=== PATIENT | male | born 1995 | race Two or more races ===

== ENCOUNTER 2017-10-30 11:30 | Emergency (ER) | payer SELFPAY ==
[2017-10-30] MEDS ORDERED: NS 0.9% 1000 ML* 1,000 ML IV ONE (12:10)
[2017-10-30] MEDS ORDERED: Metoclopramide IV* 5 MG/ML 2 ML VIAL IV ONE (12:10)
[2017-10-30] MEDS ORDERED: Ketorolac INJ* 30 MG/ML 1 ML VIAL IV ONE (12:10)
[2017-10-30] MEDS ORDERED: diPHENhydraMINE IV* 50 MG/ML 1 ml VIAL (BENADRYL) IV ONE (12:10)
[2017-10-30 12:38] LABS: Hematocrit 40 % (42-52); Hemoglobin 13.8 g/dl (14.0-18.0); Mean Corpuscular HGB Conc 35 g/dl (31-36); Mean Corpuscular Hemoglobin 30 pg (27-31); Mean Corpuscular Volume 87 fL (80-94); Mean Platelet Volume 7 um3 (7.4-10.4); Red Blood Count 4.61 10^6/ul (4.0-5.4); Red Cell Distribution Width 13 % (10.5-15); White Blood Count 11.1 10^3/ul (3.5-10.8)
[2017-10-30 12:54] LABS: ALT 33 U/L (7-52); AST 29 U/L (13-39); Albumin 4.7 g/dL (3.2-5.2); Alkaline Phosphatase 61 U/L (34-104); Anion Gap 11 mmol/L (2-11); BUN/Creatinine Ratio 15.9 (8-20); Blood Urea Nitrogen 11 mg/dL (6-24); C Reactive Protein < 1.00 mg/L (< 5.00); CO2 Carbon Dioxide 23 mmol/L (22-32); Calcium 9.8 mg/dL (8.6-10.3); Chloride 101 mmol/L (101-111); EGFR African American 181.2 (>60); EGFR Non-African American 140.9 (>60); Glucose 118 mg/dL (70-100); Potassium 3.9 mmol/L (3.5-5.0); Sodium 135 mmol/L (133-145); Total Protein 7.7 g/dL (6.4-8.9)
[2017-10-30 14:37] VITALS: BP 127/49
--- NOTE | 2017-10-30 18:21 | ED ---
Shane Santacruz Angela, scribed for Jethro Fu MD on 10/30/17 at 1210 . Headache - HPI Summary HPI Summary: This pt is a 22 y/o male [facility] x3 days. Pt reports he has felt worse today with feeling of passing out. He currently rates his pain 7/10 in severity. He additionally c/o nausea, diarrhea (today), photophobia , phonophobia. Pt states he has not had normal PO intake secondary to nausea. He denies vomiting, fever, sore throat, rhinorrhea, neck pain. Pt notes he has never had these headaches before. He didn't come in sooner as he thought his headache would resolve on its own. He denies any PMHx. No tobacco or drug use. He states drinking alcohol occasionally, last time was yesterday (he had 4 beers). - History Of Current Complaint Chief Complaint: EDWeakness Stated Complaint: HEADACHE/DIARRHEA/ABD PAIN Time Seen by Provider: 10/30/17 11:44 Hx Obtained From: Patient Onset/Duration: Started days ago, Still Present Currently Pain Is: Current Pain Scale(0-10)= - 7/10 Timing: Constant, Days Aggravating Factor: Bright Lights Associated Signs And Symptoms: Nausea, Other (Noted In Comments) - POS: photophobia, phonophobia, diarrhea. NEG: vomiting, fever, sore throat, rhinorrhea, neck pain - Allergies/Home Medications Allergies/Adverse Reactions: Allergies Allergy/AdvReac Type Severity Reaction Status Date / Time No Known Allergies Allergy Verified 10/30/17 11:39 PMH/Surg Hx/FS Hx/Imm Hx Endocrine/Hematology History: Denies: Hx Diabetes Cardiovascular History: Denies: Hx Hypertension Infectious Disease History: No Infectious Disease History: Denies: Traveled Outside the [place] in Last 30 Days - Family History Known Family History: Negative: Cardiac Disease, Hypertension, Diabetes - Social History Alcohol Use: Occasionally Substance Use Type: Reports: None Smoking Status (MU): Never Smoked Tobacco Review of Systems Negative: Fever, Chills Positive: Photophobia. Negative: Blurred Vision ENT: Other - phonophobia Negative: Sore Throat, Nasal Discharge Positive: Diarrhea, Nausea. Negative: Vomiting Negative: Other - neck pain Neurological: Other - feeling like passing out Positive: Headache All Other Systems Reviewed And Are Negative: Yes Physical Exam - Summary Physical Exam Summary: VITAL SIGNS: Reviewed. GENERAL: Patient is a well-developed and nourished male who is lying comfortable in the stretcher. Patient is not in any acute respiratory distress. HEAD AND FACE: No signs of trauma. No ecchymosis, hematomas or skull depressions. No sinus tenderness. EYES: PERRLA, EOMI x 2, No injected conjunctiva, no nystagmus. EARS: Hearing grossly intact. Ear canals and tympanic membranes are within normal limits. MOUTH: Oropharynx within normal limits. NECK: Supple, trachea is midline, no adenopathy, no JVD, no carotid bruit, no c- spine tenderness, neck with full ROM. CHEST: Symmetric, no tenderness at palpation LUNGS: Clear to auscultation bilaterally. No wheezing or crackles. CVS: Regular rate and rhythm, S1 and S2 present, no murmurs or gallops appreciated. ABDOMEN: Soft, non-tender. No signs of distention. No rebound no guarding, and no masses palpated. Bowel sounds are normal. EXTREMITIES: FROM in all major joints, no edema, no cyanosis or clubbing. NEURO: Alert and oriented x 3. No acute neurological deficits. Speech is normal and follows commands. SKIN: Dry and warm Triage Information Reviewed: Yes Vital Signs On Initial Exam: Initial Vitals Temp Pulse Resp BP Pulse Ox 98.6 F 106 16 147/76 100 10/30/17 11:34 10/30/17 11:34 10/30/17 11:34 10/30/17 11:34 10/30/17 11:34 Vital Signs Reviewed: Yes - Malika Coma Scale Coma Scale Total: 15 Diagnostics - Vital Signs Vital Signs Temp Pulse Resp BP Pulse Ox 10/30/17 11:48 110 19 99 10/30/17 11:45 154/71 10/30/17 11:34 98.6 F 106 16 147/76 100 - Laboratory Lab Results: Lab Results 10/30/17 10/30/17 Range/Units 12:27 12:27 WBC 11.1 H (3.5-10.8) 10^3/ul RBC 4.61 (4.0-5.4) 10^6/ul Hgb 13.8 L (14.0-18.0) g/dl Hct 40 L (42-52) % MCV 87 (80-94) fL MCH 30 (27-31) pg MCHC 35 (31-36) g/dl RDW 13 (10.5-15) % Plt Count 268 (150-450) 10^3/ul MPV 7 L (7.4-10.4) um3 Neut % (Auto) 89.9 H (38-83) % Lymph % (Auto) 6.9 L (25-47) % [place] % (Auto) 2.9 (1-9) % Eos % (Auto) 0.1 (0-6) % Baso % (Auto) 0.2 (0-2) % Absolute Neuts (auto) 10.0 H (1.5-7.7) 10^3/ul Absolute Lymphs (auto) 0.8 L (1.0-4.8) 10^3/ul Absolute Monos (auto) 0.3 (0-0.8) 10^3/ul Absolute Eos (auto) 0 (0-0.6) 10^3/ul Absolute Basos (auto) 0 (0-0.2) 10^3/ul Absolute Nucleated RBC 0 10^3/ul Nucleated RBC % 0 Sodium 135 (133-145) mmol/L Potassium 3.9 (3.5-5.0) mmol/L Chloride 101 (101-111) mmol/L Carbon Dioxide 23 (22-32) mmol/L Anion Gap 11 (2-11) mmol/L BUN 11 (6-24) mg/dL Creatinine 0.69 (0.67-1.17) mg/dL Est GFR ( Amer) 181.2 (>60) Est GFR (Non-Af Amer) 140.9 (>60) BUN/Creatinine Ratio 15.9 (8-20) Glucose 118 H (70-100) mg/dL Calcium 9.8 (8.6-10.3) mg/dL Total Bilirubin 0.40 (0.2-1.0) mg/dL AST 29 (13-39) U/L ALT 33 (7-52) U/L Alkaline Phosphatase 61 (34-104) U/L C-Reactive Protein < 1.00 (< 5.00) mg/L Total Protein 7.7 (6.4-8.9) g/dL Albumin 4.7 (3.2-5.2) g/dL Globulin 3.0 (2-4) g/dL Albumin/Globulin Ratio 1.6 (1-3) Result Diagrams: 10/30/17 12:27 10/30/17 12:27 Lab Statement: Any lab studies that have been ordered have been reviewed, and results considered in the medical decision making process. Headache Course/Dx - Course Assessment/Plan: This pt is a 22 y/o male [facility]/[place] headaches x3 days. Pt reports he has felt worse today with feeling of passing out. He currently rates his pain 7/10 in severity. He additionally c/o nausea, diarrhea (today), photophobia, phonophobia. Pt states he has not had normal PO intake secondary to nausea. He denies vomiting, fever, sore throat, rhinorrhea, neck pain. Pt notes he has never had these headaches before. He didn't come in sooner as he thought his headache would resolve on its own. He denies any PMHx. No tobacco or drug use. He states drinking alcohol occasionally, last time was yesterday (he had 4 beers). Test results without any significant abnormalities except show WBC of 11.1, slight anemia, CRP is less than 1. In the ED course, the pt was hydrated and given Benadryl, Reglan, and Toradol for the headache. After these medications, his headache has resolved. He reports his pain has subsided, rating it 0/10. I have no suspicion for meningitis since he does not have a fever and no meningeal signs. Headache was resolved and will be discharged home with follow up from his PCP. - Diagnoses Differential Diagnosis/HQI/PQRI: Migraine, Sinus Headache, Tension Headache, Viral Syndrome Provider Diagnoses: Headache Discharge - Discharge Plan Condition: Stable Disposition: HOME Prescriptions: Ibuprofen TAB* [Motrin TAB* 800 MG] 800 mg PO Q6H #30 tab Patient Education Materials: Acute Headache (ED) Print Language: CYPRIOT Referrals: [facility] PHYSICIAN REFERRAL [Outside] Additional Instructions: Please follow up with your primary care provider. RETURN TO THE ED FOR ANY WORSENING OR NEW SYMPTOMS. The documentation as recorded by the Shane hutton Angela accurately reflects the service I personally performed and the decisions made by , Jethro Fu MD.
== END 2017-10-30 15:01 | disposition home or self-care (01) ==
LOC: ED 11:30
DX: R51 Headache (principal); R19.7 Diarrhea, unspecified; R11.0 Nausea
CPT/HCPCS: 36415; 80053; 85025; 86140; 96374; 96375; 99283; J1200; J1885; J2765